=== PATIENT | male | born 1970 | race Caucasian/White ===

== ENCOUNTER 2021-08-31 11:08 | Day surgery (SDC) | payer MEDICAID ==
[2021-08-29 10:30] VITALS: BMI 41.7
[~2021-08-31 11:08] MED LIST: LACTATED RINGERS 1,000 ML IV SCH; LIDOCAINE 1% (10MG/ML) FOR IV START INTRADERMA PRN
[2021-08-31 11:41] VITALS: TEMP 97.6
[2021-08-31] MEDS ORDERED: LIDOCAINE 1% INJ 10MG/ML (20 ML MDV) ONE (12:43)
[2021-08-31] MEDS ORDERED: PROPOFOL 10 MG/ML 20 ML VIAL IV ONE (12:43)
[2021-08-31 13:06] VITALS: RESP 16
--- NOTE | 2021-08-31 13:14 | P.PCN ---
Date of Procedure: 08/31/21 Procedure(s) Performed: BRIEF HISTORY: Patient is a 51-year-old pleasant male scheduled for an elective colonoscopy as a part of evaluation of chronic constipation and family history of colon cancer. His mother was diagnosed with colon cancer at age 73. PROCEDURE PERFORMED: Colonoscopy. PREOPERATIVE DIAGNOSIS: Change in bowel habits/family history of colon cancer. IV sedation per Anesthesia. PROCEDURE: After informed consent was obtained, the patient, was brought into the endoscopy unit. IV sedation was administered by Anesthesia under continuous monitoring. Digital rectal examination was normal. Initially the Olympus CF-160 flexible video colonoscope was then inserted in the rectum, gradually advanced into the cecum without any difficulty. Careful examination was performed as the scope was gradually being withdrawn. Ileocecal valve and the appendiceal orifice were visualized and appeared normal. Prep was excellent. Mucosa of the cecum, ascending colon, transverse colon, descending colon, sigmoid colon, and rectum appeared normal. Retroflexion was performed in the rectum and no lesions were seen. The patient tolerated the procedure well. IMPRESSION: Normal-appearing colon from rectum to cecum with no evidence of colorectal neoplasia Scattered sigmoid diverticulosis. RECOMMENDATIONS: Findings of this examination were discussed with the patient as well as his family. He was advised to be a high-fiber diet and take fiber supplements a regular basis. He can have a repeat screening colonoscopy every 5 years because of family history of colon cancer.
[2021-08-31 13:24] VITALS: BP 119/75; PULSE 69
== END 2021-08-31 13:58 ==
LOC: ORWHC2ENDO 11:08
PROVIDERS: ATTEND Internal Medicine Gastroenterology
DX: Z80.0 Family history of malignant neoplasm of digestive organs (principal); K57.30 Diverticulosis of large intestine without perforation or abscess without bleeding; Z79.82 Long term (current) use of aspirin; Z79.899 Other long term (current) drug therapy
CPT/HCPCS: 45378; J2001; J2704